=== PATIENT | female | born 1990 | race African-American/Black ===

== ENCOUNTER 2020-05-22 05:55 | Inpatient (IN) ==
[2020-05-22] MEDS ORDERED: LACTATED RINGERS 1,000 ML IV ONE (06:13)
[2020-05-22] MEDS ORDERED: MEPERIDINE 50 MG/1 ML VIAL IV PRN (06:13)
[2020-05-22] MEDS ORDERED: LACTATED RINGERS 1,000 ML IV SCH (06:30)
[2020-05-22] MEDS ORDERED: OXYTOCIN/LR 20 UNIT/1,000 ML BAG IV SCH (06:30)
[2020-05-22 07:05] LABS: Basophils % 0.4 % (0.0-0.8); Eosinophils % 0.6 % (0.00-10.9); Hemoglobin 10.6 GM/DL (12.0-16.0); Immature Granulocytes % 0.6 %; Immature Granulocytes Absolute 0.03 #; Lymphocytes # 1.1 10*3/uL (1.4-4.0); Lymphocytes % 22.1 % (21.3-54.2); Mean Corpuscular HGB Conc 34.2 GM/DL (32-36); Mean Corpuscular Volume 95.4 FL (87-102); Mean Platelet Volume 10.4 FL (9.6-12.0); Monocytes % 10.7 % (1.7-12.7); Neutrophils % 65.6 % (38.7-73.9); Platelet Count 183 T/CUMM (130-400); Red Blood Count 3.25 MC/CUMM (3.8-5.5); Red Cell Distribution Width 13.7 % (9.3-17.3); White Blood Count 5.1 T/CUMM (4-12)
[2020-05-22 07:28] LABS: Albumin 2.2 G/DL (3.4-5.0); Bilirubin,Total 0.5 MG/DL (0.2-1.0); Calcium 8.1 MG/DL (8.5-10.1); Osmolality,Calculated 273.4 MOS/KG (273-304); Total Protein 6.1 G/DL (6.4-8.3)
[2020-05-22] MEDS ORDERED: hydrALAZINE 20 MG/1 ML VIAL IV PRN (08:12)
[2020-05-22] MEDS ORDERED: hydrALAZINE 20 MG/1 ML VIAL ONE (08:15)
[2020-05-22] MEDS: ONDANSETRON 4 MG/2 ML VIAL IV PRN ×3 (08:15→17:45)
[2020-05-22] MEDS ORDERED: NALOXONE 0.4 MG/ML VIAL IV PRN (08:21)
[2020-05-22] MEDS ORDERED: ePHEDrine 50 MG/ML VIAL IV PRN (08:21)
[2020-05-22] MEDS ORDERED: FAMOTIDINE 20 MG/2 ML VIAL IV ONE ×2 (08:23→08:26)
[2020-05-22] MEDS ORDERED: CITRIC ACID/SODIUM CITRATE 30 ML UDCUP PO ONE (08:24)
[2020-05-22] MEDS ORDERED: CITRIC ACID/SODIUM CITRATE 30 ML UDCUP ONE (08:25)
[2020-05-22] MEDS ORDERED: fentaNYL 2 MCG/ROPIV 0.2% EPID 100 ML EPIDURAL SCH (08:30)
[2020-05-22] MEDS ORDERED: LABETALOL 200 MG TABLET ONE (09:49)
[2020-05-22] MEDS: LABETALOL 200 MG TABLET PO SCH ×3 (09:50→23:33)
[2020-05-22] MEDS ORDERED: INFLUENZA VIRUS VACCINE 0.5 ML SYRINGE IM ONE (12:00)
[2020-05-22] MEDS ORDERED: miSOPROStoL 200 MCG TABLET ONE (12:26)
[2020-05-22] MEDS ORDERED: METHYLERGONOVINE 0.2 MG/1 ML AMP ONE (12:26)
[2020-05-22] MEDS ORDERED: CARBOPROST TROMETHAMINE 250 MCG/ML AMP IM ONE (12:26)
[2020-05-22] MEDS ORDERED: TRANEXAMIC ACID 1,000 MG/10 ML VIAL ONE (12:26)
[2020-05-22 13:29] LABS: Bilirubin,Urine Negative (Negative); Blood, Urine Negative (Negative); Glucose,Urine (UA) Negative (Negative); Ketones,Urine 5 mg/dL (Negative); Mucus,Urine Occasional /LPF (Occasional); Nitrite,Urine Negative (Negative); Protein,Urine Negative; RBC,Urine <1 /HPF (0-4); Squamous Epithelial Cell,Urine Occasional /HPF (0-10); Urine Appearance CLEAR (Clear); Urine Color Colorless (Yellow); Urine Specific Gravity 1.003 (1.001-1.035); Urine Urobilinogen < 2.0 EU/DL (0.2-1.0)
[2020-05-22] MEDS ORDERED: fentaNYL 100 MCG/2 ML VIAL ONE (14:46)
[2020-05-22 15:11] LABS: Cord Arterial Blood HCO3 20.3 MMOL/L
[2020-05-22 15:15] LABS: Cord Venous Blood HCO3 21.4 MMOL/L; Cord Venous Blood PCO2 43.2 MMHG; Cord Venous Blood PO2 24.3
[2020-05-22] MEDS ORDERED: IBUPROFEN 800 MG TABLET PO PRN (17:27)
[2020-05-22] MEDS ORDERED: oxyCODONE/ACETAMINOPHEN 5-325 MG TABLET PO ONE (17:43)
[2020-05-22] MEDS: IBUPROFEN 800 MG TABLET PO PRN (23:30)
[2020-05-23 06:07] LABS: Basophils % 0.2 % (0.0-0.8); Eosinophils % 0.2 % (0.00-10.9); Hematocrit 26.7 VOL% (35.7-47.0); Hemoglobin 8.8 GM/DL (12.0-16.0); Immature Granulocytes % 0.6 %; Immature Granulocytes Absolute 0.06 #; Lymphocytes # 1.3 10*3/uL (1.4-4.0); Lymphocytes % 13.1 % (21.3-54.2); Mean Corpuscular Volume 98.5 FL (87-102); Mean Platelet Volume 10.2 FL (9.6-12.0); Monocytes % 7.9 % (1.7-12.7); Platelet Count 160 T/CUMM (130-400); Red Blood Count 2.71 MC/CUMM (3.8-5.5); Red Cell Distribution Width 13.6 % (9.3-17.3); White Blood Count 10.2 T/CUMM (4-12)
[2020-05-23] MEDS: IBUPROFEN 800 MG TABLET PO PRN ×2 (06:39→15:12)
[2020-05-23] MEDS: LABETALOL 200 MG TABLET PO SCH ×2 (07:05→14:47)
[2020-05-23] MEDS ORDERED: ATROPINE 0.4 MG/1 ML VIAL ONE ×3 (07:32→19:04)
[2020-05-23] MEDS ORDERED: ACETAMINOPHEN 325 MG TABLET PO PRN (09:10)
[2020-05-23] MEDS ORDERED: BENZOCAINE 20%/MENTHOL 0.5% SPRAY 56 GM CAN TOP PRN (09:10)
[2020-05-23] MEDS ORDERED: MEASLES/MUMPS/RUBELLA VACCINE 0.5 ML VIAL SUBCUT ONE (09:10)
[2020-05-23] MEDS ORDERED: WITCH HAZEL PADS 100/JAR TOP PRN (09:10)
[2020-05-23] MEDS ORDERED: DIPH/TET/ACEL PERT BOOSTER VACCINE 0.5 ML VIAL IM ONE (09:10)
[2020-05-23] MEDS ORDERED: LANOLIN 50% CREAM 0.3 OZ TUBE TOP PRN (09:10)
[2020-05-23] MEDS ORDERED: BISACODYL 10 MG SUPP RECTAL PRN (09:10)
[2020-05-23] MEDS ORDERED: RHO(D) IMMUNE GLOBULIN 300 MCG SYRINGE IM ONE (09:10)
[2020-05-23] MEDS ORDERED: OXYTOCIN/LR 20 UNIT/1,000 ML BAG IV ONE (09:10)
[2020-05-23] MEDS ORDERED: HYDROCORTISONE 2.5% RECTAL CREAM 30 GM TUBE TOP PRN (09:10)
[2020-05-23] MEDS ORDERED: oxyCODONE/ACETAMINOPHEN 5-325 MG TABLET PO PRN (09:10)
[2020-05-23] MEDS ORDERED: IBUPROFEN 800 MG TABLET PO PRN (09:10)
[2020-05-23] MEDS ORDERED: ONDANSETRON 4 MG/2 ML VIAL IV PRN (09:10)
[2020-05-23] MEDS: DOCUSATE SODIUM 100 MG CAPSULE PO SCH ×2 (09:47→21:18)
[2020-05-23] MEDS: oxyCODONE/ACETAMINOPHEN 5-325 MG TABLET PO PRN (15:13)
[2020-05-23] MEDS ORDERED: NEOSTIGMINE 10 MG/10 ML VIAL ONE (19:04)
[2020-05-24] MEDS: oxyCODONE/ACETAMINOPHEN 5-325 MG TABLET PO PRN (02:46)
[2020-05-24] MEDS: IBUPROFEN 800 MG TABLET PO PRN (02:47)
[2020-05-24] MEDS: LABETALOL 200 MG TABLET PO SCH (04:34)
[2020-05-24 07:12] LABS: Basophils % 0.5 % (0.0-0.8); Eosinophils % 0.5 % (0.00-10.9); Hematocrit 26.4 VOL% (35.7-47.0); Hemoglobin 8.6 GM/DL (12.0-16.0); Immature Granulocytes % 0.3 %; Immature Granulocytes Absolute 0.02 #; Lymphocytes # 1.6 10*3/uL (1.4-4.0); Lymphocytes % 25.6 % (21.3-54.2); Mean Corpuscular HGB Conc 32.6 GM/DL (32-36); Mean Platelet Volume 10.5 FL (9.6-12.0); Monocytes % 9.9 % (1.7-12.7); Neutrophils % 63.2 % (38.7-73.9); Platelet Count 174 T/CUMM (130-400); Red Blood Count 2.64 MC/CUMM (3.8-5.5); Red Cell Distribution Width 14.1 % (9.3-17.3); White Blood Count 6.1 T/CUMM (4-12)
[2020-05-24 07:41] LABS: Eosinophils 1 % (0-10); Hypochromasia 1+; Lymphocytes 29 % (20-55); Microcytosis 1+; Platelet Estimate Adequate; Segmented Neutrophils 66 % (50-85); Total Cells Counted 100
[2020-05-24 08:34] VITALS: BP 118/67
[2020-05-24] MEDS: DOCUSATE SODIUM 100 MG CAPSULE PO SCH (08:58)
[2020-05-24] MEDS ORDERED: IRON (CARBONYL)/VIT C/B12/FA TABLET PO SCH (09:00)
== END 2020-05-24 11:20 | disposition home or self-care (01) | DRG 560 ==
LOC: N.LD 05:55 → N.OB 18:32
PROVIDERS: ADMIT Specialist; ATTEND Specialist